=== PATIENT | male | born 1995 | race Caucasian/White ===

== ENCOUNTER 2025-06-03 11:11 | Emergency (ER) | payer OTHER, SELFPAY ==
[2025-06-03] VITALS (7 sets, daily range): BP systolic 116–132; BP diastolic 74–90; PULSE 56–80; RESP 15–22; TEMP 36.6–37.2; O2SAT 98–100; BMI 23.9
[2025-06-03 12:34] LABS: Hematocrit 42.6 % (40-54); Hemoglobin 14.7 g/dL (13.0-16.5); Immature Granulocytes Count 0.080 X10^3/uL (0.0-0.0); Mean Corp Hgb Conc 34.5 g/dL (32-36); Mean Corpuscular Volume 87.8 fL (80-94); Mean Platelet Vol. 9.6 fl (6.2-12.0); NRBC Flagged by Analyzer 0 % (0-5); Platelet Count 468 K/mm3 (150-450); RBC Distribution Width CV 11.6 % (11.6-14.6); RBC Distribution Width SD 37.3 fl (35.1-43.9); Red Blood Count 4.85 M/mm3 (4.6-6.2); White Blood Count 11.2 K/mm3 (4.4-11.0)
[2025-06-03 13:29] LABS: AST(SGOT) 17 U/L (<=37); Alanine Aminotransfer ALT/SGPT 9 U/L (<=46); Albumin, Serum 4.4 g/dL (3.5-5.0); Alkaline Phosphatase 80 U/L (40-129); Anion Gap 15 (5-15); BUN 26 mg/dL (4-19); BUN/Creat Ratio 19.8 RATIO (10-20); Calcium,Total 9.8 mg/dL (7.6-11.0); Carbon Dioxide 20.6 mmol/L (21.0-32.0); Chloride 104 mmol/L (98-108); Estimated Creatinine Clearance 81.83 ml/min (50-250); Globulin 3.3 g/dL (2.2-4.2); Glucose 112 mg/dL (70-99); Potassium 4.0 mmol/L (3.3-5.1)
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
--- NOTE | 2025-06-03 14:19 | ED.RN ---
pt reported no urge to urinate, bladder scan performed, volume of 157
--- NOTE | 2025-06-03 14:43 | CM.ED ---
Social work Reason for referral: no PCP/insurance Referral source: case find SW identified patient's lack of PCP and insurance. SW entered patient's room, introducing self and role at [facility]. Patient accepted SW visit and patient's parents were bedside. Patient confirmed lacking a PCP and stated missing the deadline for getting insurance through work. Patient accepted resources of [facility] Provider Directory, Mare Coughlin information, and information on how to apply for Medicaid should patient need it. Patient and patient's parents denied further needs at this time. Marisel Barksdale, P[employer]TY [employer]OVER, DIRECTOR OF PROGRAM MANAGEMENT
[2025-06-03 15:12] LABS: Mucous, Urine 0 SEEN /hpf (<or=2+); Squamous Epithelial Cells - UA 0 SEEN /hpf (0-5)
[2025-06-03 16:29] LABS: Color, Urine Yellow (Yellow); Glucose, Dipstick Normal (Normal); Ketone-Dipstick 15 mg/dl (Negative); Leukocyte Esterase-Dipstick 25 /ul (Negative); Nitrite-Dipstick Negative (Negative); Occult Blood-Urine 250 /ul (Negative); Protein-Dipstick 30 mg/dl (Negative); Specific Gravity, Urine 1.015 (1.002-1.030); Urine Bilirubin Dipstick Negative (Negative)
[2025-06-03 17:12] LABS: Red Blood Cells-Urine > 100 SEEN /hpf (0-5)
--- OUTSIDE RECORDS SUMMARY | 2025-06-03 21:51 | XMS RPT_ITS | CCD ---
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 [facility] Comment on above: Performed By: #### 2 4323-8, TROP2, LIPASE, 5643-2 #### [facility] [address] [facility]. [place] [address] Traffic Monitor Specialist - Maricarmen DUARTE [id number] SQUAMOUS EPITHELIALS 6-10 Abnormal 0-5 [facility] Comment on above: Performed By: #### 2 4323-8, TROP2, LIPASE, 5643-2 #### [facility] [address] [facility]. [place] [address] Traffic Monitor Specialist - Maricarmen DUARTE [id number] Starch granules LM Ql (Urine sed) Normal NONE SEEN [facility] Comment on above: Performed By: #### 2 4323-8, TROP2, LIPASE, 5643-2 #### [facility] [address] [place] [address] Traffic Monitor Specialist - Maricarmen DUARTE [id number] Sulfonamide crystals LM Ql (Urine sed) Normal NONE SEEN [facility] Comment on above: Performed By: #### 2 4323-8, TROP2, LIPASE, 5643-2 #### [facility] [address] [place] [address] Traffic Monitor Specialist - Maricarmen DUARTE [id number] Transitional cells LM.LPF (Urine sed) [#/Area] Normal NONE SEEN [facility] Comment on above: Performed By: #### 2 4323-8, TROP2, LIPASE, 5643-2 #### [facility] [address] [place] [address] Traffic Monitor Specialist - Maricarmen DUARTE [id number] Triple phosphate crystals LM Ql (Urine sed) Normal NONE SEEN [facility] Comment on above: Performed By: #### 2 4323-8, TROP2, LIPASE, 5643-2 #### [facility] [address] [place] [address] Traffic Monitor Specialist - Maricarmen DUARTE [id number] Tyrosine crystals LM Ql (Urine sed) Normal NONE SEEN [facility] Comment on above: Performed By: #### 2 4323-8, TROP2, LIPASE, 5643-2 #### [facility] [address] [place] [address] Traffic Monitor Specialist - Maricarmen DUARTE [id number] Urate crystals LM Ql (Urine sed) Normal NONE SEEN [facility] Comment on above: Performed By: #### 2 4323-8, TROP2, LIPASE, 5643-2 #### [facility] [address] [place] [address] Traffic Monitor Specialist - Maricarmen DUARTE [id number] Urobilinogen Qn (U) Normal <=1.0 [facility] Comment on above: Result Comment: 1.0 E.U./dL Performed By: #### 2 4323-8, TROP2, LIPASE, 5643-2 #### [facility] [address] [place] [address] Traffic Monitor Specialist - Maricarmen DUARTE [id number] Waxy casts LM Ql (Urine sed) Normal NONE SEEN [facility] Comment on above: Performed By: #### 2 4323-8, TROP2, LIPASE, 5643-2 #### [facility] [address] [place] [address] Traffic Monitor Specialist - Maricarmen DUARTE [id number] WBC casts LM.LPF (Urine sed) [#/Area] Normal NONE SEEN [facility] Comment on above: Performed By: #### 2 4323-8, TROP2, LIPASE, 5643-2 #### [address] [place] [address] Traffic Monitor Specialist - Maricarmen DUARTE [id number] WBC LM.HPF (Urine sed) [#/Area] 6-10 Abnormal 0-5 [facility] Comment on above: Performed By: #### 2 4323-8, TROP2, LIPASE, 5643-2 #### [address] [place] [address] Traffic Monitor Specialist - Maricarmen DUARTE [id number] Yeast.budding LM.HPF (Urine sed) [#/Area] Normal NONE SEEN [facility] Comment on above: Performed By: #### 2 4323-8, TROP2, LIPASE, 5643-2 #### [address] [place] [address] Traffic Monitor Specialist - Maricarmen DUARTE [id number] Yeast.pseudohyphae LM Ql (Urine sed) Normal NONE SEEN [facility] Comment on above: Performed By: #### 2 4323-8, TROP2, LIPASE, 5643-2 #### [address] [place] [address] Traffic Monitor Specialist - Maricarmen DUARTE [id number] .Auto Diffon 10-16-2022 Basophil, Absolute 0.0 10 3/mcL Normal 0.0-0.2 [facility] ([place]) Comment on above: Performed By: #### C JOHN GOINS, ADIFF, CMP, LIP, ANEU, GFR #### [address] [address] Basophils/100 WBC (Bld) 0.1 % Normal 0.0-2.5 A Count includes the [facility] ([place]) Comment on above: Performed By: #### C BRISEIDA, JOHN, ADIFF, CMP, LIP, ANEU, GFR #### [address] [address] Eosinophil, Absolute 0.2 10 3/mcL Normal 0.0-0.4 [facility] ([place]) Comment on above: Performed By: #### C JOHN GOINS, ADIFF, CMP, LIP, ANEU, GFR #### [address] [address] Eosinophils/100 WBC (Bld) 1.6 % Normal 0.0-7.0 [facility] ([place]) Comment on above: Performed By: #### C JOHN GOINS, ADIFF, CMP, LIP, ANEU, GFR #### [address] [address] Lymphocyte, Absolute 0.3 10 3/mcL Low 0.8-3.9 [facility] ([place]) Comment on above: Performed By: #### C JOHN GOINS, ADIFF, CMP, LIP, ANEU, GFR #### [address] [address] Lymphocytes/100 WBC (Bld) 2.4 % Low 10.0-50.0 [facility] ([place]) Comment on above: Performed By: #### C JOHN GOINS, ADIFF, CMP, LIP, ANEU, GFR #### [address] [address] Monocyte, Absolute 0.8 10 3/mcL Normal 0.2-1.0 [facility] ([place]) Comment on above: Performed By: #### C JOHN GOINS, ADIFF, CMP, LIP, ANEU, GFR #### [address] [address] Monocytes/100 WBC (Bld) 6.7 % Normal 1.7-13.0 A Count includes the [facility] ([place]) Comment on above: Performed By: #### C JOHN GOINS, LUCHO, CMP, LIP, ANEU, GFR #### [address] [address] Neutrophils/100 WBC (Bld) 89.2 % High 37.0-80.0 [facility] ([place]) Comment on above: Performed By: #### C JOHN GOINS, LUCHO, CMP, LIP, ANEU, GFR #### [address] [address] .GFRon 10-16-2022 GFR 87 ml/min/1.73sqm Normal [facility] ([place]) Comment on above: Result Comment: GFR Population mean for , Non- Americans Ages 20-29 = 116 mL/min/1.73 sq.m. Ages 30-39 = 107 mL/min/1.73 sq.m. Ages 40-49 = 99 mL/min/1.73 sq.m. Ages 50-59 = 93 mL/min/1.73 sq.m. Ages 60-69 = 85 mL/min/1.73 sq.m. Ages 70+ = 75 mL/min/1.73 sq.m. Chronic Kidney Disease: Less than 60 mL/min/1.73 square meters End Stage Renal Disease: Less than 15 mL/min/1.73 square meters Performed By: #### C JOHN GOINS, LUCHO, CMP, LIP, ANEU, GFR #### [place] [address] [place], [place] [address] GFR Non- 72 ml/min/1.73sqm Normal [facility] ([place]) Comment on above: Result Comment: GFR Population mean for , Non- Americans Ages 20-29 = 116 mL/min/1.73 sq.m. Ages 30-39 = 107 mL/min/1.73 sq.m. Ages 40-49 = 99 mL/min/1.73 sq.m. Ages 50-59 = 93 mL/min/1.73 sq.m. Ages 60-69 = 85 mL/min/1.73 sq.m. Ages 70+ = 75 mL/min/1.73 sq.m. Chronic Kidney Disease: Less than 60 mL/min/1.73 square meters End Stage Renal Disease: Less than 15 mL/min/1.73 square meters Performed By: #### C JOHN GOINS, LUCHO, CMP, LIP, ANEU, GFR #### [address] [address] .MDWon 10-16-2022 Monocyte Distribution Width 22.97 High 0.00-20.00 [facility] ([place]) Comment on above: Result Comment: For adults in ED, MDW>20.0 may be associated with a higher risk of sepsis during the first 12hrs of hospital admission Performed By: #### C JOHN GOINS, LUCHO, CMP, LIP, ANEU, GFR #### [address] [address] .NEUABSon 10-16-2022 Neutrophil, Absolute 10.7 10 3/mcL High 2.9-6.2 A Count includes the [facility] ([place]) Comment on above: Performed By: #### C JOHN GOINS, LUCHO, CMP, LIP, ANEU, GFR #### [place] [address] CBCon 10-16-2022 Erythrocyte distribution width (RBC) [Ratio] 12.5 % Normal 11.5-14.5 [facility] ([place]) Comment on above: Performed By: #### C JOHN GOINS, LUCHO, CMP, LIP, ANEU, GFR #### [place] [address] Hematocrit (Bld) [Volume fraction] 47.3 % Normal 42.0-52.0 [facility] ([place]) Comment on above: Performed By: #### C JOHN GOINS, LUCHO, CMP, LIP, ANEU, GFR #### [place] [id number] Hgb 16.2 G/dL Normal 14.0-18.0 [facility] ([place]) Comment on above: Performed By: #### C JOHN GOINS, ADIFF, CMP, LIP, ANEU, GFR #### [address] [address] MCH (RBC) [Entitic mass] 29.7 pg Normal 27.0-31.2 [facility] ([place]) Comment on above: Performed By: #### C JOHN GOINS, LUCHO, CMP, LIP, ANEU, GFR #### [address] [address] MCHC 34.3 G/dL Normal 31.8-35.4 [facility] ([place]) Comment on above: Performed By: #### C JOHN GOINS, LUCHO, CMP, LIP, ANEU, GFR #### [address] [address] MCV (RBC) [Entitic vol] 86.6 fL Normal 80.0-94.0 A Count includes the [facility] ([place]) Comment on above: Performed By: #### C JOHN GOINS, LUCHO, CMP, LIP, ANEU, GFR #### [address] [address] Platelet 314 10 3/mcL Normal 130-400 [facility] ([place] Comment on above: Performed By: #### C JOHN GOINS, LUCHO, CMP, LIP, ANEU, GFR #### [address] [address] Platelet mean volume (Bld) [Entitic vol] 7.5 fL Normal 7.4-10.4 [facility] ([place] Comment on above: Performed By: #### C JOHN GOINS, LUCHO, CMP, LIP, ANEU, GFR #### [address] [address] RBC 5.46 10 6/mcL Normal 4.04-6.13 [facility] ([place] Comment on above: Performed By: #### C JOHN GOINS, SARANYAIFF, CMP, LIP, ANEU, GFR #### [address] [address] WBC 12.0 10 3/mcL High 4.6-10.8 [facility] ([place] Comment on above: Performed By: #### C JOHN GOINS, LUCHO, CMP, LIP, ANEU, GFR #### [address] [address] CMPon 10-16-2022 Albumin Level 4.3 G/dL Normal 3.5-5.0 [facility] ([place] Comment on above: Performed By: #### C JOHN GOINS, LUCHO, CMP, LIP, ANEU, GFR #### [address] [address] Albumin/Globulin [Mass ratio] 1.2 {ratio} Normal 1.1-2.5 [facility] ([place] Comment on above: Performed By: #### C JOHN GOINS, LUCHO, CMP, LIP, ANEU, GFR #### [address] [address] ALP [Catalytic activity/Vol] 69 U/L Normal 40-135 [facility] ([place] Comment on above: Performed By: #### C JOHN GOINS, LUCHO, CMP, LIP, ANEU, GFR #### [address] [address] ALT [Catalytic activity/Vol] 19 U/L Normal 16-63 [facility] ([place] Comment on above: Performed By: #### C JOHN GOINS, LUCHO, CMP, LIP, ANEU, GFR #### [address] [address] AST [Catalytic activity/Vol] 17 U/L Normal 10-40 [facility] ([place] Comment on above: Performed By: #### C JOHN GOINS, LUCHO, CMP, LIP, ANEU, GFR #### [address] [address] Bili Total 0.7 mg/dL Normal 0.2-1.0 [facility] ([place] Comment on above: Result Comment: Use of this assay is not recommended for patients undergoing treatment with eltrombopag due to the potential for falsely elevated results. Performed By: #### C JOHN GOINS, SARANYAIFF, CMP, LIP, ANEU, GFR #### [address] [address] BUN/Creatinine Ratio 19 ratio Normal 7-27 [facility] ([place] Comment on above: Performed By: #### C JOHN GOINS, LUCHO, CMP, LIP, ANEU, GFR #### [address] [address] Calcium [Mass/Vol] 9.4 mg/dL Normal 8.4-10.2 [facility] ([place]) Comment on above: Performed By: #### C JOHN GOINS, LUCHO, CMP, LIP, ANEU, GFR #### [address] [address] Chloride [Moles/Vol] 101 mmol/L Normal 98-107 [facility] ([place] Comment on above: Performed By: #### C JOHN GOINS, LUCHO, CMP, LIP, ANEU, GFR #### [address] [address] CO2 [Moles/Vol] 24 mmol/L Normal 22-29 [facility] ([place] Comment on above: Performed By: #### C JOHN GOINS, LUCHO, CMP, LIP, ANEU, GFR #### [address] [address] Creatinine [Mass/Vol] 1.21 mg/dL Normal 0.70-1.30 [facility] ([place] Comment on above: Performed By: #### C JOHN GOINS, LUCHO, CMP, LIP, ANEU, GFR #### [address] [address] Electrolyte Balance 13.0 mEq/L Normal 4.0-15.0 [facility] ([place]) Comment on above: Performed By: #### C JOHN GOINS, LUCHO, CMP, LIP, ANEU, GFR #### [address] [address] Globulin 3.6 G/dL Normal [facility] ([place] Comment on above: Performed By: #### C JOHN GOINS, SARANYAIFF, CMP, LIP, ANEU, GFR #### [address] [address] Glucose [Mass/Vol] 106 mg/dL High 70-105 [facility] ([place] Comment on above: Performed By: #### C JOHN GOINS, LUCHO, CMP, LIP, ANEU, GFR #### [address] [address] Potassium [Moles/Vol] 4.3 mmol/L Normal 3.5-5.1 [facility] ([place] Comment on above: Performed By: #### C JOHN GOINS, LUCHO, CMP, LIP, ANEU, GFR #### [address] [address] Sodium [Moles/Vol] 138 mmol/L Normal 136-145 [facility] ([place] Comment on above: Performed By: #### C JOHN GOINS, LUCHO, CMP, LIP, ANEU, GFR #### [address] [address] Total Protein 7.9 G/dL Normal 6.4-8.2 [facility] ([place] Comment on above: Performed By: #### C JOHN GOINS, LUCHO, CMP, LIP, ANEU, GFR #### [address] [address] Urea nitrogen [Mass/Vol] 23 mg/dL High 7-18 [facility] ([place] Comment on above: Performed By: #### JOHN ORDONEZ, SARANYAIFF, CMP, LIP, ANEU, GFR #### [address] [address] [address] ABD/PELVIS W/ IV CONTRAST ONLYon 10-16-2022 CT ABD/PELVIS W/ IV CONTRAST ONLY ORIGINAL EXAMINATION: CT OF THE ABDOMEN AND PELVIS WITH CONTRAST10/16/2022 10:53 am TECHNIQUE: CT of the abdomen and pelvis was performed with the administration of intravenous contrast. Multiplanar reformatted images are provided for review. Automated exposure control, iterative reconstruction, and/or weight based adjustment of the mA/kV was utilized to reduce the radiation dose to as low as reasonably achievable. COMPARISON: None HISTORY: ORDERING SYSTEM PROVIDED HISTORY: Reason for Exam: pain right lower quadrant pain and nausea and vomiting FINDINGS: Provided images of the lower thorax are unremarkable. The liver is unremarkable in size, contour, and attenuation. There is no intra or extrahepatic biliary duct dilation. No focal mass identified. The gallbladder, pancreas, spleen, and bilateral adrenal glands are unremarkable. The kidneys enhance symmetrically. Suspected punctate nonobstructing left nephrolith. There is no hydronephrosis. The visualized esophagus, stomach, and duodenum are unremarkable. The small bowel exhibits no acute abnormalities. The colon is of normal course and caliber. There is no free intraperitoneal air or fluid. The appendix extends superiorly from the cecum. The appendix measures 6 mm without periappendiceal stranding. No periappendiceal free air or fluid. The visualized aorta and inferior vena cava are unremarkable. No pathologically enlarged lymph nodes are identified. The urinary bladder is without wall thickening or focal mass. Prostate appears normal. No suspicious osteolytic or osteoblastic lesions are identified. IMPRESSION: 1. No acute process within the abdomen or pelvis. Specifically, no evidence of appendicitis. 2. Suspected punctate left nephrolithiasis, nonobstructing. Interpreted by: Lucho Martinez DO Preliminary Report By: Lucho Martinez DO Electronically signed By Lucho Martinez DO Dictated Date: 10/16/2022 10:57:25 AM Prelim Date: 10/16/2022 11:02:19 AM Sign Date: 10/16/2022 11:02:19 AM Ordering Provider: MANJULA BARRIOS [facility] ([place]) LABORATORYOrdered By: SYSTEM SYSTEM on 10-16-2022 Albumin BCP dye [Mass/Vol] 4.3 G/dL Invalid Interpretation Code 3.5 - 5.0 G/dL AO ADM SS Albumin/Globulin [Mass ratio] 1.2 {ratio} Invalid Interpretation Code 1.1 - 2.5 ratio AO ADM SS ALP [Catalytic activity/Vol] 69 U/L Invalid Interpretation Code 40 - 135 U/L AO ADM SS ALT With P-5'-P [Catalytic activity/Vol] 19 U/L Invalid Interpretation Code 16 - 63 U/L AO ADM SS AST With P-5'-P [Catalytic activity/Vol] 17 U/L Invalid Interpretation Code 10 - 40 U/L AO ADM SS Bilirubin [Mass/Vol] 0.7 mg/dL Invalid Interpretation Code 0.2 - 1.0 mg/dL AO ADM SS Calcium [Mass/Vol] 9.4 mg/dL Invalid Interpretation Code 8.4 - 10.2 mg/dL AO ADM SS Chloride [Moles/Vol] 101 mmol/L Invalid Interpretation Code 98 - 107 mmol/L AO ADM SS CO2 [Moles/Vol] 24 mmol/L Invalid Interpretation Code 22 - 29 mmol/L AO ADM SS Creatinine [Mass/Vol] 1.21 mg/dL Invalid Interpretation Code 0.70 - 1.30 mg/dL AO ADM SS Electrolyte Balance 13.0 mEq/L Invalid Interpretation Code 4.0 - 15.0 mEq/L AO ADM SS GFR 87 ml/min/1.73sqm Invalid Interpretation Code AO Chemistry S GFR Non- 72 ml/min/1.73sqm Invalid Interpretation Code AO Chemistry S Globulin 3.6 G/dL Invalid Interpretation Code AO ADM SS Glucose [Mass/Vol] 106 mg/dL Invalid Interpretation Code 70 - 105 mg/dL AO ADM SS Lipase [Catalytic activity/Vol] 22 U/L Invalid Interpretation Code 16 - 77 U/L AO ADM SS Potassium [Moles/Vol] 4.3 mmol/L Invalid Interpretation Code 3.5 - 5.1 mmol/L AO ADM SS Protein [Mass/Vol] 7.9 G/dL Invalid Interpretation Code 6.4 - 8.2 G/dL AO ADM SS Sodium [Moles/Vol] 138 mmol/L Invalid Interpretation Code 136 - 145 mmol/L AO ADM SS Urea nitrogen [Mass/Vol] 23 mg/dL Invalid Interpretation Code 7 - 18 mg/dL AO ADM SS Urea nitrogen/Creatinine [Mass ratio] 19 ratio Invalid Interpretation Code 7 - 27 ratio AO ADM SS LABORATORYOrdered By: Phylicia Valentino on 10-16-2022 Appearance (U) Clear (10/16/22 10:28 AM) Invalid Interpretation Code Clear AO Auto Urine SS Basophil, Absolute 0.0 103/mcL Invalid Interpretation Code 0.0 - 0.2 10^3/mcL AO Workflow SS Basophils/100 WBC (Bld) 0.1 % Invalid Interpretation Code 0.0 - 2.5 % AO Workflow SS Bilirubin Ql (U) Negative (10/16/22 10:28 AM) Invalid Interpretation Code Negative AO Auto Urine SS Color (U) Yellow (10/16/22 10:28 AM) Invalid Interpretation Code AO Auto Urine SS Eosinophil, Absolute 0.2 103/mcL Invalid Interpretation Code 0.0 - 0.4 10^3/mcL AO Workflow SS Eosinophils/100 WBC (Bld) 1.6 % Invalid Interpretation Code 0.0 - 7.0 % AO Workflow SS Erythrocyte distribution width (RBC) [Ratio] 12.5 % Invalid Interpretation Code 11.5 - 14.5 % AO Workflow SS Glucose Test strip (U) [Mass/Vol] Negative Invalid Interpretation Code Negativemg/d L AO Auto Urine SS Hematocrit (Bld) [Volume fraction] 47.3 % Invalid Interpretation Code 42.0 - 52.0 % AO Workflow SS Hemoglobin (Bld) [Mass/Vol] 16.2 G/dL Invalid Interpretation Code 14.0 - 18.0 G/dL AO Workflow SS Hemoglobin Auto test strip (U) [Mass/Vol] Negative (10/16/22 10:28 AM) Invalid Interpretation Code Negative AO Auto Urine SS Ketones Ql (U) Trace mg/dL Invalid Interpretation Code Negativemg/d L AO Auto Urine SS Lymphocyte, Absolute 0.3 103/mcL Invalid Interpretation Code 0.8 - 3.9 10^3/mcL AO Workflow SS Lymphocytes/100 WBC (Bld) 2.4 % Invalid Interpretation Code 10.0 - 50.0 % AO Workflow SS MCH (RBC) [Entitic mass] 29.7 pg Invalid Interpretation Code 27.0 - 31.2 pg AO Workflow SS MCHC 34.3 G/dL Invalid Interpretation Code 31.8 - 35.4 G/dL AO Workflow SS MCV (RBC) [Entitic vol] 86.6 fL Invalid Interpretation Code 80.0 - 94.0 fL AO Workflow SS Monocyte distribution width Auto (Bld) [Entitic vol] 22.97 Invalid Interpretation Code 0.00 - 20.00 AO Workflow SS Comment on above: Result Comment: For adults in ED, MDW>20.0 may be associated with a higher risk of sepsis during the first 12hrs of hospital admission Monocyte, Absolute 0.8 103/mcL Invalid Interpretation Code 0.2 - 1.0 10^3/mcL AO Workflow SS Monocytes/100 WBC (Bld) 6.7 % Invalid Interpretation Code 1.7 - 13.0 % AO Workflow SS Neutrophil, Absolute 10.7 103/mcL Invalid Interpretation Code 2.9 - 6.2 10^3/mcL AO Workflow SS Neutrophils/100 WBC (Bld) 89.2 % Invalid Interpretation Code 37.0 - 80.0 % AO Workflow SS Platelet mean volume (Bld) [Entitic vol] 7.5 fL Invalid Interpretation Code 7.4 - 10.4 fL AO Workflow SS Platelets (Bld) [#/Vol] 314 103/mcL Invalid Interpretation Code 130 - 400 10^3/mcL AO Workflow SS RBC (Bld) [#/Vol] 5.46 106/mcL Invalid Interpretation Code 4.04 - 6.13 10^6/mcL AO Workflow SS UA Leuk Est Negative (10/16/22 10:28 AM) Invalid Interpretation Code Negative AO Auto Urine SS UA Nitrite Negative (10/16/22 10:28 AM) Invalid Interpretation Code Negative AO Auto Urine SS UA pH 1 Invalid Interpretation Code AO Auto Urine SS UA Protein Negative Invalid Interpretation Code Negativemg/d L AO Auto Urine SS UA Spec Grav 1.015 (10/16/22 10:28 AM) Invalid Interpretation Code 1.015-1.025 AO Auto Urine SS UA Specimen Type Clean Catch (10/16/22 10:28 AM) Invalid Interpretation Code AO Auto Urine SS UA Urobilinogen 0.2 E.U./dL Invalid Interpretation Code 0.2-1.0E.U./ dL AO Auto Urine SS WBC (Bld) [#/Vol] 12.0 103/mcL Invalid Interpretation Code 4.6 - 10.8 10^3/mcL AO Workflow SS LIPon 10-16-2022 Lipase Level 22 U/L Normal 16-77 [facility] ([place]) Comment on above: Performed By: #### C BC, MDW, ADIFF, CMP, LIP, ANEU, GFR #### [address] [address] UAon 10-16-2022 Color (U) Yellow Normal [facility] ([place]) Comment on above: Performed By: #### U A #### [address] [address] Glucose (U) [Mass/Vol] Negative Normal Negative [facility] ([place]) Comment on above: Performed By: #### U A #### [address] [address] Ketones Ql (U) Trace Abnormal Negative [facility] ([place]) Comment on above: Performed By: #### U A #### [place] [address] UA Appear Clear Normal Clear [facility] ([place] Comment on above: Performed By: #### U A #### [address] [address] UA Blood Negative Normal Negative [facility] ([place] Comment on above: Performed By: #### U A #### [place] [address] UA Leuk Est Negative Normal Negative [facility] ([place] Comment on above: Performed By: #### U A #### [place] [address] UA Nitrite Negative Normal Negative [facility] ([place] Comment on above: Performed By: #### U A #### [place] [address] UA pH >=9.0 Normal [facility] ([place] Comment on above: Performed By: #### U A #### [place] [address] UA Protein Negative Normal Negative [facility] ([place] Comment on above: Performed By: #### U A #### [place] [address] UA Spec Grav 1.015 Normal 1.015-1.025 [facility] ([place] Comment on above: Performed By: #### U A #### [place] [address] UA Specimen Type Clean Catch Normal [facility] ([place] Comment on above: Performed By: #### U A #### [place] [address] UA Urobilinogen 0.2 E.U./dL Normal 0.2-1.0 [facility] ([place] Comment on above: Performed By: #### U A #### [place] [address] Urobilinogen (U) [Mass/Vol] Negative Normal Negative [facility] ([place]) Comment on above: Performed By: #### U A #### [address] [address] Discharge Instructionon 05-27 Discharge Instruction [facility] Records [id number] [address]Cynwwsiax Vpqmbkgklen40/28/176MR#: [id number] Acct: [id number]: SIMON KELLY Rep #: [id number]: 1995 From: Kisha MCCALLCP: Care Physician,No Primary Status: REG ERED Disposition- Plan for ED Patient:Chief Complaint: LacerationInstruction s: ED Laceration HandReferrals:Care Physician,No Primary [Primary Care Provider] -Caprice Matthews DO [STAFF PHYSICIAN] - 10 Day for suture removalWhat to do if you have ProblemsFor any increased pain, shortness of breath, bleeding, nausea or vomiting, chest pain, or anyunexpected problems, contact your Primary Care Provider. Call [facility] ([phone])or report to the closest Emergency Room.Call 911 if necessary.06/22/172126 Date Kisha MCCLOUDosigndonald Signature (If Indicated): Date ____CC: No Primary Care Physician Normal [facility] Emergency Department Summary on 06-22-2017 Emergency Department Summary [facility] Records [id number] [place] [address]Hyeerqklr Department Mexecgp76/28/173MR#: [id number] Acct: [id number]: SIMON KELLY Rep #: [id number]: 1995 From: Kisha SHULTZ: Care Physician,No Primary Status: REG ER- ER Visit SummaryDate of Service: 06/22/17Chief Complaint: [Laceration left index finger]History of Present Illness: The patient is a 21 M [presents with a laceration to his left indexfinger that was sustained while using a knife. Patient is right-hand dominant. Patient unsureof his last tetanus.]Physical Examination: [Left index finger-there is a 1.2 cm laceration over the lateral aspectof the proximal phalanx. He has normal range of motion at the DIP and PIP joint. He isneurovascular intact distally with normal sensation and cap refill.]Test Results: []Emergency Department Course and Treatment: Laceration repair-area sterilely draped and prepped.Using 1% lidocaine a total 2 cc used locally to anesthetize the wound. Wound cleansed withShur-Clens and irrigated with copious saline. Using 5-0 nylon a total of 2 single interruptedsutures placed with good wound edge approximation. []Treatment Plan: [Keep wound clean and dry.]Disposition: [Discharged to home in stable condition. Patient advised to have sutures removedin 10 days.]Impression: [Laceration left index finger 1.2 cm with simple repair]ED Disposition- Plan for ED Patient:Chief Complaint: LacerationReferrals:C are Physician,No Primary [Primary Care Provider] -What to do if you have ProblemsFor any increased pain, shortness of breath, bleeding, nausea or vomiting, chest pain, or anyunexpected problems, contact your Primary Care Provider. Call [facility] ([phone])or report to the closest Emergency Room.Call 911 if necessary.06/22/172124 Date Kisha Escamilla Signature (If Indicated): Date ____CC: No Primary Care Physician Normal [facility] Vital Signs Date Time Vital Sign Value Performing Clinician Facility 06-03-2025 18:14-0400 Body temperature 98.9 [degF] No Primary Care Physician [facility] 06-03-2025 18:14-0400 Diastolic blood pressure 74 mm[Hg] No Primary Care Physician [facility] 06-03-2025 18:14-0400 Heart rate 65 /min No Primary Care Physician [facility] 06-03-2025 18:14-0400 Respiratory rate 22 /min No Primary Care Physician [facility] 06-03-2025 18:14-0400 SaO2% (BldA) [Mass fraction] 100 % No Primary Care Physician [facility] 06-03-2025 18:14-0400 Systolic blood pressure 116 mm[Hg] No Primary Care Physician [facility] 06-03-2025 12:18-0400 Body mass index (BMI) [Ratio] 23.9 kg/m2 No Primary Care Physician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 from others? Or both? (1) Completely to get attention, revenge or a reaction from others (2) Mostly to get attention, revenge or a reaction from others living with the pain or how you were feeling) (3) Equally to get attention, revenge or a reaction from others (4) Mostly to end or stop the pain (you couldn?t go on (5) Completely to end or stop the pain (you couldn?t go on and to end/stop the pain living with the pain or how you were feeling) (0) Does not apply N/A Total Score 0 Step 4: Guidelines to Determine Level of Risk and Develop Interventions to LOWER Risk Level ?The estimation of suicide risk, at the culmination of the suicide assessment, is the quintessential clinical judgment, since no study has identified one specific risk factor or set of risk factors as specifically predictive of suicide or other suicidal behavior.? From [facility] [employer] [facility] (more content not included)... [facility] 10-16-2022 Hospital Discharg e instructions Patient Education 10/16/2022 11:25:14 Food Poisoning or Gastroenteritis (Adult) Food Poisoning or Viral Gastroenteritis (Adult) You have a stomach illness that is likely either food poisoning or viral gastroenteritis. Food poisoning is illness that is passed along in food and affects the stomach and intestinal tract. It usually occurs from 1 to 24 hours after eating food that has spoiled. When it happens within a few hours of eating, it is often caused by toxins from bacteria in food that has not been cooked or refrigerated properly. Viral gastroenteritis is an illness from a virus that also affects the stomach and intestinal tract. Many people call it the stomach flu, but it has nothing to do with influenza. In fact, it can happen from food poisoning, but it can also happen when germs are passed from aoaoiq-tc-mfahqz or contaminated surface (toothbrush, cutting board, toilet) to a person. Either illness can cause these symptoms: Abdominal pain and cramping Nausea Vomiting Diarrhea Fever and chills Loss of bowel control The symptoms of food poisoning usually last 1 to 2 days. The symptoms of viral gastroenteritis can sometimes last up to 7 days but usually end sooner. Antibiotics are not effective for either illness. Other causes of gastroenteritis include bacteria and parasites which are not discussed here. Home care Follow all instructions given by your healthcare provider. Rest at home for the next 24 hours, or until you feel better. Avoid caffeine, tobacco, and alcohol. These can make diarrhea, cramping, and pain worse. If taking medicines: Uboc-kls-kaycnen diarrhea or nausea medicines are generally OK unless you have bleeding, fever, or severe abdominal pain. You may use acetaminophen or NSAID medicines like ibuprofen or naproxen to reduce pain and fever. Don t use these if you have chronic liver or kidney disease, or ever had a stomach ulcer or gastrointestinal bleeding. Talk with your healthcare provider first. Don't use NSAID medicines if you are already taking one for another condition (like arthritis) or are on daily aspirin therapy (such as for heart disease or after a stroke). To prevent the spread of illness: Remember that washing with soap and water is the best way to prevent the spread of infection. Wash your hands before and after caring for a sick person. Dry your hands with a single use towel. Clean the toilet after each use. Wash your hands or use alcohol-based hand vice president of manufacturing before eating. Wash your hands or use alcohol-based hand vice president of manufacturing before and after preparing food. Keep in mind that people with diarrhea or vomiting should not prepare food for others. Wash your hands or use alcohol-based hand vice president of manufacturing after using cutting boards, counter-tops, and knives (and other utensils) that have been in contact with raw foods. Wash and then peel fruits and vegetables. Keep uncooked meats away from cooked and hsbzq-zg-njl foods. Use a food thermometer when cooking. Cook poultry to at least 165 F (74 C). Cook ground meat (beef, veal, pork, jackson) to at least 160 F (71 C). Cook fresh beef, veal, jackson, and pork to at least 145 F (63 C). Don t eat raw or undercooked eggs (poached or andre side up), poultry, meat or unpasteurized milk and juices. Food and drinks The main goal while treating vomiting or diarrhea is to prevent dehydration. This is done by taking small amounts of liquids often. Keep in mind that liquids are more important than food right now. Drink only small amounts of liquids at a time. Don t force yourself to eat, especially if you are having cramping, vomiting, or diarrhea. Don t eat large amounts at a time, even if you are hungry. If you eat, avoid fatty, greasy, spicy, or fried foods. Don t eat dairy foods or drink milk if you have diarrhea. These can make diarrhea worse. The first 24 hours you can try: Oral rehydration solutions, available at grocery stores and pharmacies. Sports drinks are not a good choice if you are very dehydrated. They have too much sugar and not enough electrolytes. Soft drinks without caffeine Eulalia cheyenne Water (plain or flavored) Decaf tea or coffee Clear broth, consomm , or bouillon Gelatin, ice pops, or frozen fruit juice bars The second 24 hours, if you are feeling better, you can add: Hot cereal, plain toast, bread, rolls, or crackers Plain noodles, rice, mashed potatoes, chicken noodle soup, or rice soup Unsweetened canned fruit (no pineapple) Bananas As you recover: Limit fat intake to less than 15 grams per day. Don t eat margarine, butter, oils, mayonnaise, sauces, gravies, fried foods, peanut butter, meat, poultry, or fish. Limit fiber. Don t eat raw or cooked vegetables, fresh fruits except bananas, and bran cereals. Limit caffeine and chocolate. Don t use spices or seasonings except salt. Resume a normal diet over time, as you feel better and your symptoms improve. If the symptoms come back, go back to a simple diet or clear liquids. Follow-up care Follow up with your healthcare provider, or as advised. If a stool sample was taken or cultures were done, call the healthcare provider for the results as instructed. Call 911 Call 911 if you have any of these symptoms: Trouble breathing Confusion Extreme drowsiness or trouble walking Loss of consciousness Rapid heart rate Chest pain Stiff neck Seizure When to seek medical advice Call your healthcare provider right away if any of these occur: Abdominal pain that gets worse Constant lower right abdominal pain Continued vomiting and inability to keep liquids down Diarrhea more than 5 times a day Blood in vomit or stool Dark urine or no urine for 8 hours, dry mouth and tongue, tiredness, weakness, or dizziness New rash You don t get better in 2 to 3 days Fever of 100.4 F (38 C) or higher, or as directed by your healthcare provider You have new symptoms of arthritis [id number] [employer]. [address] [place] [address], [place] [address]. All rights reserved. This information is not intended as a substitute for professional medical care. Always follow your healthcare professional's instructions. Follow Up Care 10/16/2022 10:09:41 With:Call MIRELA Barrera Pt. Refferral [phone] Address:Unknown When:2-4 days Comments:Return to ED if symptoms worsen [facility] 10-16-2022 Emergency department Discharge summary Discharge Instructions Thank you for allowing [facility] to assist you with your healthcare needs. The following is important discharge information regarding your hospital visit. Diagnosis from Today's Visit Gastroenteritis Abdominal pain Diarrhea Emesis What to Do Next Instructions from Your Care Team No qualifying data available. Post Acute Orders No qualifying data available. You Need to Schedule the Following Appointments Follow Up with Call AMB New Pt. Refferral [phone] When Within 2-4 days Why: Return to ED if symptoms worsen Allergies NKA Medications Please ask your primary doctor or pharmacist before taking any other medication not listed, including over the counter drugs, herbal medications, vitamins and or supplements as they may interact with your home medications. What How Much When Why Instructions Last Dose New hyoscyamine (Levsin SL 0.125 mg sublingual tablet) 2 tab(s) under the tongue Every 6 hours as needed for abdominal discomfort Gastroenteritis Duration: 5 Days Printed Prescription New ondansetron (ondansetron 4 mg oral tablet, disintegrating) 1 tab(s) by mouth Every 6 hours as needed for Nausea/Vomiting Gastroenteritis Duration: 3 Days Printed Prescription Unchanged acetaminophen-hydrocodone (acetaminophen-hydrocodone 325 mg-5 mg oral tablet) Unchanged amoxicillin (amoxicillin 500 mg oral capsule) Unchanged chlorhexidine topical (chlorhexidine 0.12% oral rinse liquid) Please take this list to your next doctor s visit. Bring all medications you take, including over the counter medications, herbals and other supplements with you to your doctor s visit. Patients and families are reminded to discard old lists and to update any records with all medication providers or retail pharmacies. Medication Leaflets ondansetron (oral) (on COLE se donn) Marcela Medrano Zuplenz What is the most important information I should know about ondansetron? You should not use ondansetron if you are also using apomorphine (Apokyn). What is ondansetron? Ondansetron blocks the actions of chemicals in the body that can trigger nausea and vomiting. Ondansetron is used to prevent nausea and vomiting that may be caused by surgery, cancer chemotherapy, or radiation treatment. Ondansetron may be used for purposes not listed in this medication guide. What should I discuss with my health care provider before taking ondansetron? You should not use ondansetron if: you are also using apomorphine (Apokyn); or you are allergic to ondansetron or similar medicines (dolasetron, granisetron, palonosetron). To make sure ondansetron is safe for you, tell your doctor if you have: liver disease; an electrolyte imbalance (such as low levels of potassium or magnesium in your blood); congestive heart failure, slow heartbeats; a personal or family history of long QT syndrome; or a blockage in your digestive tract (stomach or intestines). Ondansetron is not expected to harm an unborn baby. Tell your doctor if you are . It is not known whether ondansetron passes into breast milk or if it could harm a nursing baby. Tell your doctor if you are breast-feeding a baby. Ondansetron is not approved for use by anyone younger than 4 years old. Ondansetron orally disintegrating tablets may contain phenylalanine. Tell your doctor if you have phenylketonuria (PKU). How should I take ondansetron? Follow all directions on your prescription label. Do not take this medicine in larger or smaller amounts or for longer than recommended. Ondansetron can be taken with or without food. The first dose of ondansetron is usually taken before the start of your surgery, chemotherapy, or radiation treatment. Follow your doctor's dosing instructions very carefully. Take the ondansetron regular tablet with a full glass of water. To take the orally disintegrating tablet (Zofran ODT): Keep the tablet in its blister pack until you are ready to take it. Open the package and peel back the foil. Do not push a tablet through the foil or you may damage the tablet. Use dry hands to remove the tablet and place it in your mouth. Do not swallow the tablet whole. Allow it to dissolve in your mouth without chewing. Swallow several times as the tablet dissolves. To use ondansetron oral soluble film (strip) (Zabdiel): Keep the strip in the foil pouch until you are ready to use the medicine. Using dry hands, remove the strip and place it on your tongue. It will begin to dissolve right away. Do not swallow the strip whole. Allow it to dissolve in your mouth without chewing. Swallow several times after the strip dissolves. If desired, you may drink liquid to help swallow the dissolved strip. Wash your hands after using Zuplenz. Measure liquid medicine with the dosing syringe provided, or with a special dose-measuring spoon or medicine cup. If you do not have a dose-measuring device, ask your pharmacist for one. Store at room temperature away from moisture, heat, and light. Store liquid medicine in an upright position. What happens if I miss a dose? Take the missed dose as soon as you remember. Skip the missed dose if it is almost time for your next scheduled dose. Do not take extra medicine to make up the missed dose. What happens if I overdose? Seek emergency medical attention or call the Poison Help line at . Overdose symptoms may include sudden loss of vision, severe constipation, feeling light-headed, or fainting. What should I avoid while taking ondansetron? Ondansetron may impair your thinking or reactions. Be careful if you drive or do anything that requires you to be alert. What are the possible side effects of ondansetron? Get emergency medical help if you have signs of an allergic reaction: rash, hives; fever, chills, difficult breathing; swelling of your face, lips, tongue, or throat. Call your doctor at once if you have: severe constipation, stomach pain, or bloating; headache with chest pain and severe dizziness, fainting, fast or pounding heartbeats; fast or pounding heartbeats; jaundice (yellowing of the skin or eyes); blurred vision or temporary vision loss (lasting from only a few minutes to several hours); high levels of serotonin in the body--agitation, hallucinations, fever, fast heart rate, overactive reflexes, nausea, vomiting, diarrhea, loss of coordination, fainting. Common side effects may include: diarrhea or constipation; headache; drowsiness; or tired feeling. This is not a complete list of side effects and others may occur. Call your doctor for medical advice about side effects. You may report side effects to FDA at 4-053-GZY-2755. What other drugs will affect ondansetron? Ondansetron can cause a serious heart problem, especially if you use certain medicines at the same time, including antibiotics, antidepressants, heart rhythm medicine, antipsychotic medicines, and medicines to treat cancer, malaria, HIV or AIDS. Tell your doctor about all medicines you use, and those you start or stop using during your treatment with ondansetron. Taking ondansetron while you are using certain other medicines can cause high levels of serotonin to build up in your body, a condition called 'serotonin syndrome,' which can be fatal. Tell your doctor if you also use: medicine to treat depression; medicine to treat a psychiatric disorder; a narcotic (opioid) medication; or medicine to prevent nausea and vomiting. This list is not complete and many other drugs can interact with ondansetron. This includes prescription and nyzt-gbt-ndsangh medicines, vitamins, and herbal products. Give a list of all your medicines to any healthcare provider who treats you. Where can I get more information? Your pharmacist can provide more information about ondansetron. Remember, keep this and all other medicines out of the reach of children, never share your medicines with others, and use this medication only for the indication prescribed. Every effort has been made to ensure that the information provided by [employer]. [employer]') is accurate, up-to-date, and complete, but no guarantee is made to that effect. Drug information contained herein may be time sensitive. [employer] information has been compiled for use by healthcare practitioners and consumers in the [place] and therefore [employer] does not warrant that uses outside of the [place] are appropriate, unless specifically indicated otherwise. [employer]'s drug information does not endorse drugs, diagnose patients or recommend therapy. [employer] drug information is an informational resource designed to assist licensed healthcare practitioners in caring for their patients and/or to serve consumers viewing this service as a supplement to, and not a substitute for, the expertise, skill, knowledge and judgment of healthcare practitioners. The absence of a warning for a given drug or drug combination in no way should be construed to indicate that the drug or drug combination is safe, effective or appropriate for any given patient. [employer] does not assume any responsibility for any aspect of healthcare administered with the aid of information [employer] provides. The information contained herein is not intended to cover all possible uses, directions, precautions, warnings, drug interactions, allergic reactions, or adverse effects. If you have questions about the drugs you are taking, check with your doctor, nurse or pharmacist. Copyright 3282-2623 [employer]. Version: 13.01. Revision Date: 07/15/2016. hyoscyamine (kevin oh SYE a kenisha) Jessica, Feliz Bateman, Hyjun, Levbid, Levsin, NuLev, Symax SR What is the most important information I should know about hyoscyamine? You should not use this medicine if you have urination problems, a stomach or bowel obstruction, severe ulcerative colitis, glaucoma, or myasthenia gravis. What is hyoscyamine? Hyoscyamine is used to treat many different stomach and intestinal disorders, including peptic ulcer and irritable bowel syndrome. It is also used to control muscle spasms in the bladder, kidneys, or digestive tract, and to reduce stomach acid. Hyoscyamine is sometimes used to reduce tremors and rigid muscles in people with symptoms of Parkinson's disease. Hyoscyamine is also used as a drying agent to control excessive salivation, runny nose, or excessive sweating. Hyoscyamine may also be used for purposes not listed in this medication guide. What should I discuss with my healthcare provider before taking hyoscyamine? You should not use hyoscyamine if you are allergic to it, or if you have: a bladder obstruction or other urination problems; an enlarged prostate; a stomach or bowel obstruction (including paralytic ileus); severe ulcerative colitis, or toxic megacolon; glaucoma; or myasthenia gravis. Hyoscyamine is not approved for use by anyone younger than 2 years old. Tell your doctor if you have ever had: heart problems; high blood pressure; kidney disease; a colostomy or ileostomy; a thyroid disorder; or hiatal hernia with GERD (gastroesophageal reflux disease). It is not known whether this medicine will harm an unborn baby. Tell your doctor if you are or plan to become . It may not be safe to breast-feed while using this medicine. Ask your doctor about any risk. How should I take hyoscyamine? Follow all directions on your prescription label and read all medication guides or instruction sheets. Use the medicine exactly as directed. Always follow directions on the medicine label about giving this medicine to a child. Swallow an extended-release tablet whole and do not crush, chew, or break it. Measure liquid medicine carefully. Use the dosing syringe provided, or use a medicine dose-measuring device (not a kitchen spoon). Remove an orally disintegrating tablet from the package only when you are ready to take the medicine. Place the tablet on your tongue and allow it to dissolve. Swallow several times as the tablet dissolves. You may drink water after the pill has completely dissolved. Store at room temperature away from moisture and heat. What happens if I miss a dose? Take the medicine as soon as you can, but skip the missed dose if it is almost time for your next dose. Do not take two doses at one time. What happens if I overdose? Seek emergency medical attention or call the Poison Help line at . Overdose symptoms may include headache, dizziness, dry mouth, trouble swallowing, nausea, vomiting, blurred vision, hot dry skin, and feeling restless or nervous. What should I avoid while taking hyoscyamine? Avoid taking antacids at the same time you take hyoscyamine. Antacids can make it harder for your body to absorb hyoscyamine. If you use an antacid, take it after you have taken hyoscyamine and eaten a meal. Drinking alcohol with this medicine can cause side effects. Avoid becoming overheated or dehydrated during exercise and in hot weather. Hyoscyamine can decrease sweating and you may be more prone to heat stroke. Avoid driving or hazardous activity until you know how this medicine will affect you. Your reactions could be impaired. What are the possible side effects of hyoscyamine? Get emergency medical help if you have signs of an allergic reaction: hives; difficult breathing; swelling of your face, lips, tongue, or throat. Stop using hyoscyamine and call your doctor at once if you have: anxiety, confusion, hallucinations, unusual thoughts or behavior; weakness, memory problems; slurred speech; problems with balance or muscle movement; diarrhea; o pounding heartbeats or fluttering in your chest. Common side effects may include: dizziness, drowsiness, feeling weak or tired; decreased sweating, decreased urination; blurred vision; rash; dry mouth, decreased sense of taste; stomach pain, nausea, vomiting, bloating; diarrhea, constipation; headache; sleep problems (insomnia); or impotence, loss of interest in sex, or trouble having an orgasm. This is not a complete list of side effects and others may occur. Call your doctor for medical advice about side effects. You may report side effects to FDA at 3-486-XAX-4028. What other drugs will affect hyoscyamine? Tell your doctor about all your other medicines, especially: an antidepressant; medicine to treat mental illness; cold or allergy medicine (Benadryl and others); medicine to treat or prevent nausea and vomiting; or an MAO inhibitor--isocarboxazid, linezolid, methylene blue injection, phenelzine, rasagiline, selegiline, tranylcypromine, and others. This list is not complete. Other drugs may affect hyoscyamine, including prescription and nuow-aex-fqegpnc medicines, vitamins, and herbal products. Not all possible drug interactions are listed here. Where can I get more information? Your pharmacist can provide more information about hyoscyamine. Remember, keep this and all other medicines out of the reach of children, never share your medicines with others, and use this medication only for the indication prescribed. Every effort has been made to ensure that the information provided by [employer]') is accurate, up-to-date, and complete, but no guarantee is made to that effect. Drug information contained herein may be time sensitive. [employer] information has been compiled for use by healthcare practitioners and consumers in the [place] and therefore [employer] does not warrant that uses outside of the [place] are appropriate, unless specifically indicated otherwise. [employer] drug information does not endorse drugs, diagnose patients or recommend therapy. [employer] drug information is an informational resource designed to assist licensed healthcare practitioners in caring for their patients and/or to serve consumers viewing this service as a supplement to, and not a substitute for, the expertise, skill, knowledge and judgment of healthcare practitioners. The absence of a warning for a given drug or drug combination in no way should be construed to indicate that the drug or drug combination is safe, effective or appropriate for any given patient. [employer] does not assume any responsibility for any aspect of healthcare administered with the aid of information [employer] provides. The information contained herein is not intended to cover all possible uses, directions, precautions, warnings, drug interactions, allergic reactions, or adverse effects. If you have questions about the drugs you are taking, check with your doctor, nurse or pharmacist. Copyright 6489-6045 [employer] Version: 7.01. Revision Date: 08/14/2018. Education Materials Food Poisoning or Viral Gastroenteritis (Adult) You have a stomach illness that is likely either food poisoning or viral gastroenteritis. Food poisoning is illness that is passed along in food and affects the stomach and intestinal tract. It usually occurs from 1 to 24 hours after eating food that has spoiled. When it happens within a few hours of eating, it is often caused by toxins from bacteria in food that has not been cooked or refrigerated properly. Viral gastroenteritis is an illness from a virus that also affects the stomach and intestinal tract. Many people call it the stomach flu, but it has nothing to do with influenza. In fact, it can happen from food poisoning, but it can also happen when germs are passed from hgtxde-tg-alqjkp or contaminated surface (toothbrush, cutting board, toilet) to a person. Either illness can cause these symptoms: Abdominal pain and cramping Nausea Vomiting Diarrhea Fever and chills Loss of bowel control The symptoms of food poisoning usually last 1 to 2 days. The symptoms of viral gastroenteritis can sometimes last up to 7 days but usually end sooner. Antibiotics are not effective for either illness. Other causes of gastroenteritis include bacteria and parasites which are not discussed here. Home care Follow all instructions given by your healthcare provider. Rest at home for the next 24 hours, or until you feel better. Avoid caffeine, tobacco, and alcohol. These can make diarrhea, cramping, and pain worse. If taking medicines: Udjk-nzc-ujvbkfc diarrhea or nausea medicines are generally OK unless you have bleeding, fever, or severe abdominal pain. You may use acetaminophen or NSAID medicines like ibuprofen or naproxen to reduce pain and fever. Don t use these if you have chronic liver or kidney disease, or ever had a stomach ulcer or gastrointestinal bleeding. Talk with your healthcare provider first. Don't use NSAID medicines if you are already taking one for another condition (like arthritis) or are on daily aspirin therapy (such as for heart disease or after a stroke). To prevent the spread of illness: Remember that washing with soap and water is the best way to prevent the spread of infection. Wash your hands before and after caring for a sick person. Dry your hands with a single use towel. Clean the toilet after each use. Wash your hands or use alcohol-based hand vice president of manufacturing before eating. Wash your hands or use alcohol-based hand vice president of manufacturing before and after preparing food. Keep in mind that people with diarrhea or vomiting should not prepare food for others. Wash your hands or use alcohol-based hand vice president of manufacturing after using cutting boards, counter-tops, and knives (and other utensils) that have been in contact with raw foods. Wash and then peel fruits and vegetables. Keep uncooked meats away from cooked and avnxk-pg-lnr foods. Use a food thermometer when cooking. Cook poultry to at least 165 F (74 C). Cook ground meat (beef, veal, pork, jackson) to at least 160 F (71 C). Cook fresh beef, veal, jackson, and pork to at least 145 F (63 C). Don t eat raw or undercooked eggs (poached or andre side up), poultry, meat or unpasteurized milk and juices. Food and drinks The main goal while treating vomiting or diarrhea is to prevent dehydration. This is done by taking small amounts of liquids often. Keep in mind that liquids are more important than food right now. Drink only small amounts of liquids at a time. Don t force yourself to eat, especially if you are having cramping, vomiting, or diarrhea. Don t eat large amounts at a time, even if you are hungry. If you eat, avoid fatty, greasy, spicy, or fried foods. Don t eat dairy foods or drink milk if you have diarrhea. These can make diarrhea worse. The first 24 hours you can try: Oral rehydration solutions, available at grocery stores and pharmacies. Sports drinks are not a good choice if you are very dehydrated. They have too much sugar and not enough electrolytes. Soft drinks without caffeine Eulalia cheyenne Water (plain or flavored) Decaf tea or coffee Clear broth, consomm , or bouillon Gelatin, ice pops, or frozen fruit juice bars The second 24 hours, if you are feeling better, you can add: Hot cereal, plain toast, bread, rolls, or crackers Plain noodles, rice, mashed potatoes, chicken noodle soup, or rice soup Unsweetened canned fruit (no pineapple) Bananas As you recover: Limit fat intake to less than 15 grams per day. Don t eat margarine, butter, oils, mayonnaise, sauces, gravies, fried foods, peanut butter, meat, poultry, or fish. Limit fiber. Don t eat raw or cooked vegetables, fresh fruits except bananas, and bran cereals. Limit caffeine and chocolate. Don t use spices or seasonings except salt. Resume a normal diet over time, as you feel better and your symptoms improve. If the symptoms come back, go back to a simple diet or clear liquids. Follow-up care Follow up with your healthcare provider, or as advised. If a stool sample was taken or cultures were done, call the healthcare provider for the results as instructed. Call 911 Call 911 if you have any of these symptoms: Trouble breathing Confusion Extreme drowsiness or trouble walking Loss of consciousness Rapid heart rate Chest pain Stiff neck Seizure When to seek medical advice Call your healthcare provider right away if any of these occur: Abdominal pain that gets worse Constant lower right abdominal pain Continued vomiting and inability to keep liquids down Diarrhea more than 5 times a day Blood in vomit or stool Dark urine or no urine for 8 hours, dry mouth and tongue, tiredness, weakness, or dizziness New rash You don t get better in 2 to 3 days Fever of 100.4 F (38 C) or higher, or as directed by your healthcare provider You have new symptoms of arthritis 9512-9407 [employer]. [address] [place] [address]. All rights reserved. This information is not intended as a substitute for professional medical care. Always follow your healthcare professional's instructions. Additional Information VACCINATE! IT SAVES LIVES! Members of the community who have not yet received the COVID-19 vaccine and would like to receive it can visit one of [facility] vaccine clinics. There are many vaccine clinic locations within the [facility]. For locations and available times, please visit [email or web address]. It is important to note that some COVID mobile vaccine clinics are held outdoors and may be canceled in rainy or stormy conditions. To learn more about pediatric vaccinations (ages 5-11), we invite you to visit the [facility] webpage. [email or web address] [email or web address] To learn more about the COVID-19 vaccine, we invite you to visit the [facility] website for a list of frequently asked questions. [email or web address] [email or web address] [facility] Patient Portal Access Instructions: Stay connected with your healthcare team and access your personal medical information anytime with the [employer] Patient Portal. If you would like a full copy of your medical records please contact the [facility] Medical Records Department Monday through Monday between 8a.m. and 4:30p.m. Please follow the directions below to access the portal: 1.Access the email account you provided upon registration to the [facility].2.Look for an invitation email from [facility].3.Open the email and access the invitation link: Accept Invitation to [facility] [employer].Fill in the required ferris to create your account. Sign into [email or web address] with your username and password that you created in the above steps to stay up to date. You can then view a summary of results, a summary of your visits, and the ability to download your summaries to your computer or send the information securely to a physician. Remember that your healthcare information is confidential, so carefully consider who you will allow to register on the [facility] [employer] Patient Portal for access to your information. You can also access the [facility] [employer] Patient Portal on the [employer] shree. Simply click on Health Records under Health Data and then click on the [employer] logo. HOW TO SAFELY DISPOSE OF PRESCRIPTION MEDICATIONS Please use one of the following methods to safely dispose of your unused medications. 1.Use a drug disposal kit: the drug disposal pouch allows you to safely discard your old and unused drugs. Ask your nurse to give you one when you are discharged.2.Visit a local take-back location: Many local pharmacies and police departments have programs that collect old and unwanted prescription drugs. Call your local pharmacy or go to http://bit.Optasite/2G2Xk7y to find one close to you.3.Make use of household items: Use cat litter or old coffee grounds to dispose medications if other options are not available. Mix your drugs with these household products, seal them in an airtight container and throw it into the garbage. Call [facility]: [phone] to be sure your drugs can be disposed of in this way. Some medicines may require a different approach.4.Never flush your medications down the toilet. IF YOU HAVE BEEN PRESCRIBED AN OPIOIDS FOR PAIN If you have been prescribed an opioid (such as hydrocodone, oxycodone or morphine), it is critical to understand the possible side effects and risks of opioid pain medications. Even when taken as directed, opioids can have several side effects including: Tolerance, meaning you might need to take more of a medication for the same pain relief. Nausea, vomiting and/or constipation. Sleepiness, dizziness, dry mouth, confusion, depression or itching. Physical dependence, meaning you have withdrawal symptoms when a medication is stopped ? this can develop within a few days. KNOW YOUR RESPONSIBILITIES It is important to know exactly how much and how often to take the opioid pain medications you are prescribed. Never take opioids in higher amounts or more often than prescribed. Do not combine opioids with alcohol or other drugs that cause drowsiness, such as benzodiazepines, also known as benzos, including diazepam and alprazolam, muscle relaxants or sleep aids. Never sell or share prescription opioids. This is illegal. Store opioids in a secure place and out of reach of others (including children, family, friends and visitors). The last page(s) of this document has been signed and retained as a CHART COPY Signatures Patient Education Materials Food Poisoning or Gastroenteritis (Adult) Medication Leaflets ondansetron (oral), hyoscyamine My discharge plan and instructions have been reviewed and explained to me and IJAKY DEVUN understand my current condition and have read and understand these discharge instructions. I have received a written copy of the plan/instructions. If I have questions, I am aware that I should contact my doctor. Patient/Medical Lead Signature: Date/Time: Relationship to Patient: Witness Name/Signature: Date/Time: [facility] 10-16-2022 Note ORIGINAL EXAMINATION: CT OF THE ABDOMEN AND PELVIS WITH CONTRAST10/16/2022 10:53 am TECHNIQUE: CT of the abdomen and pelvis was performed with the administration of intravenous contrast. Multiplanar reformatted images are provided for review. Automated exposure control, iterative reconstruction, and/or weight based adjustment of the mA/kV was utilized to reduce the radiation dose to as low as reasonably achievable. COMPARISON: None HISTORY: ORDERING SYSTEM PROVIDED HISTORY: Reason for Exam: pain right lower quadrant pain and nausea and vomiting FINDINGS: Provided images of the lower thorax are unremarkable. The liver is unremarkable in size, contour, and attenuation. There is no intra or extrahepatic biliary duct dilation. No focal mass identified. The gallbladder, pancreas, spleen, and bilateral adrenal glands are unremarkable. The kidneys enhance symmetrically. Suspected punctate nonobstructing left nephrolith. There is no hydronephrosis. The visualized esophagus, stomach, and duodenum are unremarkable. The small bowel exhibits no acute abnormalities. The colon is of normal course and caliber. There is no free intraperitoneal air or fluid. The appendix extends superiorly from the cecum. The appendix measures 6 mm without periappendiceal stranding. No periappendiceal free air or fluid. The visualized aorta and inferior vena cava are unremarkable. No pathologically enlarged lymph nodes are identified. The urinary bladder is without wall thickening or focal mass. Prostate appears normal. No suspicious osteolytic or osteoblastic lesions are identified. IMPRESSION: 1. No acute process within the abdomen or pelvis. Specifically, no evidence of appendicitis. 2. Suspected punctate left nephrolithiasis, nonobstructing. Interpreted by: Lucho Martinez DO Preliminary Report By: Lucho Martinez DO Electronically signed By Lucho Martinez DO Dictated Date: 10/16/2022 10:57:25 AM Prelim Date: 10/16/2022 11:02:19 AM Sign Date: 10/16/2022 11:02:19 AM Ordering Provider: MANJULA BARRIOS [facility] 10-16-2022 Note ORIGINAL EXAMINATION: CT OF THE ABDOMEN AND PELVIS WITH CONTRAST10/16/2022 10:53 am TECHNIQUE: CT of the abdomen and pelvis was performed with the administration of intravenous contrast. Multiplanar reformatted images are provided for review. Automated exposure control, iterative reconstruction, and/or weight based adjustment of the mA/kV was utilized to reduce the radiation dose to as low as reasonably achievable. COMPARISON: None HISTORY: ORDERING SYSTEM PROVIDED HISTORY: Reason for Exam: pain right lower quadrant pain and nausea and vomiting FINDINGS: Provided images of the lower thorax are unremarkable. The liver is unremarkable in size, contour, and attenuation. There is no intra or extrahepatic biliary duct dilation. No focal mass identified. The gallbladder, pancreas, spleen, and bilateral adrenal glands are unremarkable. The kidneys enhance symmetrically. Suspected punctate nonobstructing left nephrolith. There is no hydronephrosis. The visualized esophagus, stomach, and duodenum are unremarkable. The small bowel exhibits no acute abnormalities. The colon is of normal course and caliber. There is no free intraperitoneal air or fluid. The appendix extends superiorly from the cecum. The appendix measures 6 mm without periappendiceal stranding. No periappendiceal free air or fluid. The visualized aorta and inferior vena cava are unremarkable. No pathologically enlarged lymph nodes are identified. The urinary bladder is without wall thickening or focal mass. Prostate appears normal. No suspicious osteolytic or osteoblastic lesions are identified. IMPRESSION: 1. No acute process within the abdomen or pelvis. Specifically, no evidence of appendicitis. 2. Suspected punctate left nephrolithiasis, nonobstructing. Interpreted by: Lucho Martinez DO Preliminary Report By: Lucho Martinez DO Electronically signed By Lucho Martinez DO Dictated Date: 10/16/2022 10:57:25 AM Prelim Date: 10/16/2022 11:02:19 AM Sign Date: 10/16/2022 11:02:19 AM Ordering Provider: MANJULA BARRIOS [facility] Evaluation + Plan note No data available for this section [facility] Evaluation note No assessment inform ation available [facility] Work Phone: Hospital Discharge instructions Additional Instructions Continue to take your pain medications as prescribed. He may take both the prescription oxycodone as well as ibuprofen as needed for pain. You should pass the stone on your own however if you continue to have pain either return to the emergency room if you cannot handle the pain at home or follow-up outpatient with urology. [facility] Work Phone: Reason for referral (narrative) No reason for referral information available [facility] Work Phone: Summary Purpose Family History No Family History Records FoundNo Family History Records FoundNo Family History Records FoundNo Family History Records Found Advance Directives Documents on File Type Date Recorded Patient Medical Lead Expl anation Advance Directive(s) 05/21/2025 1:03 PM Date Activated Date Inactivated Comments 05/18/2025 9:10 AM 05/20/2025 8:49 PM Question Answer Comments Full Code Order Discussed With: Patient Advance Directive Response Recorded Date/ Time Do you have a Healthcare Power of [employer]? No June 03, 2025 12:21pm Chief Complaint and Reason for Visit Chief Complaint Admit Date flank pain June 03, 2025 11:11am Additional Source Comments (unrecognized sect ion and content) No Status Records FoundNo Status Records FoundNo Status Records FoundNo Status Records Found INFORMATION SOURCE (unrecogn ized section and content) DATE CREATED AUTHOR 03/21/2018 [facility] DATE CREATED AUTHOR AUTHOR'S ORGANIZ ATION 03/14/2023 [facility] ([place] DATE CREATED AUTHOR AUTHOR'S ORGANIZ ATION 05/24/2025 [facility] DATE CREATED AUTHOR AUTHOR'S ORGANIZ ATION 05/31/2025 [facility] Care Team (unrecognized sect ion and content) Care Team Personnel Name: PHYSICIAN, NONE Position: Physician Member Role: Primary Care Physician Name: MD MANJULA BARRIOS MD Position: ED Physician Member Role: ED Physician Address: Address: [facility] [address] [place], [place] [address] Source Comments (unrecognize d section and content) In the event this informatio n is protected by the Federal Confidentiality of Alcohol and Drug Abuse Patient Records regulations: The Federal rules restrict any use of the information to criminally investigate or prosecute any alcohol or drug abuse patient.[facility] Reason for Visit (unrecogniz ed section and content) Reason Comments Appointment Care Teams (unrecognized sec tion and content) Team Status: Active Member Role/Relationship Status Dates No Primary Care Physician Primary Care Provider Active Team Status: Inactive Member Role/Relationship Status Dates No Primary Care Physician Primary Care Provider Active Start: June 03, 2025 End: June 03, 2025 Dr. Teofilo Stout , DO Emergency Provider Active Start: June 03, 2025 End: June 03, 2025 Goals (unrecognized section and content) Goals may be documented in a n alternate section FOR RECORDS PERTAINING TO PATIENTS WHO ARE OR HAVE BEEN ENROLLED IN A CHEMICAL DEPENDENCY/SUBSTANCEABUSE PROGRAM, SOME INFORMATION MAY BE OMITTED. This clinical summary was aggregated from multiple sources. Caution should be exercised in using it in the provision of clinical care. This summary normalizes information from multiple sources, and as a consequence, information in this document may materially change the coding, format and clinical context of patient data. In addition, data may be omitted in some cases. CLINICAL DECISIONS SHOULD BE BASED ON THE PRIMARY CLINICAL RECORDS. [employer] [facility]. provides no warranty or guarantee of the accuracy or completeness of information in this document.
== END 2025-06-03 18:14 | disposition home or self-care (01) ==
PROVIDERS: Emergency Provider Emergency Medicine; Visit Provider Emergency Medicine
DX: N20.1 Calculus of ureter (principal); R10.9 Unspecified abdominal pain; R11.2 Nausea with vomiting, unspecified; F17.210 Nicotine dependence, cigarettes, uncomplicated; R35.0 Frequency of micturition; R31.9 Hematuria, unspecified
CPT/HCPCS: 74176; 80053; 81001; 85025; 99282